=== PATIENT | female | born 1970 | race Caucasian/White ===

== ENCOUNTER 2018-08-13 14:50 | Emergency (ER) | payer OTHER, SELFPAY ==
[2018-08-13 15:08] VITALS: BP 108/73; PULSE 78; RESP 18; TEMP 36.7; O2SAT 99
--- NOTE | 2018-08-13 15:10 | ED.UPPEXIN ---
HPI - Extremity Injury (Upper) <Maxine Krishna PA-C - Last Filed: 08/13/18 21:17> General Chief Complaint: Trauma Stated Complaint: Fell off ladder, R arm pain Time Seen by Provider: 08/13/18 15:09 Source: patient Mode of arrival: ambulatory Limitations: no limitations History of Present Illness HPI narrative: this 47-year-old female that she was up on a 6 ft ladder getting something from the closet when she slipped. She states that she did not fall all the way down because she grabbed the shelf , then dropped down from she states that she fell onto her right gluteal area, which is sore. She thinks that she scraped her left oliveira on the ladder. Her worst pain is in the right forearm area. She states she does not think that she fell directly on it, and her thinks that she hit it on a wood cabinet on the way down, fell onto the garage floor. She denies hitting her head or LOC. She is not having pain in her neck. She denies weakness or paresthesia in extremities. She denies groin numbness, bowel or bladder problems, states she got right up and was able to walk Related Data Home Medications Medication Instructions Recorded Confirmed albuterol sulfate [ProAir HFA] 2 - 4 puff INHALATION Q4-6H PRN 08/13/18 08/13/18 sertraline 100 mg PO BEDTIME 08/13/18 08/13/18 Allergies Allergy/AdvReac Type Severity Reaction Status Date / Time ibuprofen Allergy Rash Verified 08/13/18 15:12 Review of Systems <Maxine Krishna PA-C - Last Filed: 08/13/18 21:17> Review of Systems All systems reviewed & are unremarkable except as noted in HPI and below Exam <Maxine Krishna PA-C - Last Filed: 08/13/18 21:17> Narrative Exam Narrative: GENERAL APPEARANCE: Patient sitting comfortably, in no distress. LUNGS: Clear to auscultation bilaterally. HEART: Rate and rhythm regular without murmur, normal S1 and S2, no S3 or S4. MUSCULOSKELETAL: No point tenderness over the thoracic or lumbar spine. She has mild tenderness over the sacrum and right SI/gluteal area. She has localized edema of the right mid to distal forearm with point tenderness overlying. mild tenderness over the distal lateral border of the wrist and snuffbox, no tenderness elsewhere over the wrist or hand. Full range of motion at the elbow, wrist, and right hand fingers without tenderness , senior manager creative services strength 5/5 NEUROVASCULAR: Right hand fingers are warm and pink with brisk cap refill, sensation grossly intact DERMATOLOGIC: There is a superficial abrasion on the left oliveira 6 mm in length oozing slightly. There are superficial abrasions on the right forearm with faint patches of ecchymoses. Initial Vital Signs Initial Vital Signs: Vital Signs Temperature 98.1 F 08/13/18 15:08 Pulse Rate 78 08/13/18 15:08 Respiratory Rate 18 08/13/18 15:08 Blood Pressure 108/73 08/13/18 15:08 Pulse Oximetry 99 08/13/18 15:08 <Rebecca Ontiveros DO - Last Filed: 08/16/18 08:07> Initial Vital Signs Initial Vital Signs: Vital Signs Temperature 98.1 F 08/13/18 15:08 Pulse Rate 78 08/13/18 15:08 Respiratory Rate 18 08/13/18 15:08 Blood Pressure 108/73 08/13/18 15:08 Pulse Oximetry 99 08/13/18 15:08 Course <Maxine Krishna PA-C - Last Filed: 08/13/18 21:17> Orders Ordered: Discontinued Medications Diphtheria/Tetanus/Acell Pertussis (Adacel) 0.5 ml IM .ONCE ONE Stop: 08/13/18 15:42 Ibuprofen (Advil) 800 mg PO NOW ONE Stop: 08/13/18 15:26 Last Admin: 08/13/18 15:30 Dose: 800 mg Vital Signs - 8 hr 08/13/18 15:08 08/13/18 16:36 Temperature 98.1 F Pulse Rate 78 73 Respiratory Rate 18 15 Blood Pressure 108/73 117/74 Pulse Oximetry 99 97 <DO Leticia Hernandez Last Filed: 08/16/18 08:07> Orders Ordered: Discontinued Medications Diphtheria/Tetanus/Acell Pertussis (Adacel) 0.5 ml IM .ONCE ONE Stop: 08/13/18 15:42 Ibuprofen (Advil) 800 mg PO NOW ONE Stop: 08/13/18 15:26 Last Admin: 08/13/18 15:30 Dose: 800 mg Vital Signs - 8 hr 08/13/18 15:08 08/13/18 16:36 Temperature 98.1 F Pulse Rate 78 73 Respiratory Rate 18 15 Blood Pressure 108/73 117/74 Pulse Oximetry 99 97 Discharge Plan Departure Patient Disposition: Home Clinical Impression: Contusion of multiple sites Discharge Date/Time: 08/13/18 16:38 Interventions: ED Discharge Assessment Last Done: 08/13/18 16:36 Instructions: DI for Contusion Activity Restrictions/Additional Instructions: Please return as we talked about if you have any new or worsening symptoms. Please protect your arm and rest the forearm and wrist area as you may have strained it when you fell. Please be sure to follow up with your PCP for recheck next week. Sometimes repeat x-rays are needed the if you are not getting better. Your tailbone area may be sore for some time but you can walk and exercise as tolerated (avoid pressure on the area as much as possible). You may wish to continue Ibuprofen 400-800mg every 8 hours for pain and swelling, at least for the next few days, and you can add Tylenol as needed Prescriptions: No Action albuterol sulfate [ProAir HFA] 90 mcg/actuation HFA aerosol inhaler 2 - 4 puff Inhalation Q4-6H PRN (Reason: wheezing or cough) RF: 0 sertraline 100 mg tablet 100 mg PO BEDTIME RF: 0 Referrals: Princess Kiran MD [Non-Staff] - <Rebecca Ontiveros DO - Last Filed: 08/16/18 08:07> Cosign ED Attending Chuyature Attestation: I was immediately available in the department for consultation. Documentation has been reviewed. I agree with assessment and plan.
--- NOTE | 2018-08-13 15:29 | DI.RAD.S_ITS ---
PROCEDURE: XR HAND RT MIN 3V INDICATIONS: lateral pain s/p fall TECHNIQUE: 3 views of the hand(s) acquired. COMPARISON: None. FINDINGS: Bones: No fractures or dislocations. Carpal bones are normally aligned. No suspicious bony lesions. Soft tissues: No suspicious soft tissue calcifications. IMPRESSION: No fracture. No osseous lesion. If symptoms and/or clinical suspicion for pathology persists, further assessment with repeat radiographs (7-10 days) or advanced imaging (e.g. CT, MRI or bone scan) may be helpful. Dictated by: Citlali Henriquez MD, PhD on 08/13/2018 at 15:47 Approved by: Citlali Henriquez MD, PhD on 08/13/2018 at 15:48
--- NOTE | 2018-08-13 15:29 | DI.RAD.S_ITS ---
PROCEDURE: XR FOREARM RT 2V INDICATIONS: proximal to mid pain, s/p fall TECHNIQUE: 2 views of the forearm were acquired. COMPARISON: None. FINDINGS: Bones: No fractures or dislocations. No suspicious bony lesions. Soft tissues: No suspicious soft tissue calcifications or masses. IMPRESSION: No fracture. No osseous lesion. If symptoms and/or clinical suspicion for pathology persists, further assessment with repeat radiographs (7-10 days) or advanced imaging (e.g. CT, MRI or bone scan) may be helpful. Dictated by: Citlali Henriquez MD, PhD on 08/13/2018 at 15:44 Approved by: Citlali Henriquez MD, PhD on 08/13/2018 at 15:47
[2018-08-13] MEDS: IBUPROFEN 400 MG TABLET 800 MG PO (15:30)
[2018-08-13 16:36] VITALS: BP 117/74; PULSE 73; RESP 15; O2SAT 97
== END 2018-08-13 16:38 | disposition home or self-care (01) ==
PROVIDERS: Emergency Provider Internal Medicine
DX: S80.812A Abrasion, left lower leg, initial encounter (principal); S50.811A Abrasion of right forearm, initial encounter; W11.XXXA Fall on and from ladder, initial encounter
CPT/HCPCS: 73090; 73130; 99282; 99283

== ENCOUNTER 2019-09-29 08:56 | Emergency (ER) | payer OTHER, SELFPAY ==
[2019-09-29 09:11] VITALS: BP 115/80; PULSE 89; RESP 19; TEMP 37; O2SAT 97; BMI 31.5
--- NOTE | 2019-09-29 09:11 | DI.RAD.S_ITS ---
PROCEDURE: XR CHEST 2V INDICATIONS: shortness of breath TECHNIQUE: 2 views of the chest were acquired. COMPARISON: None. FINDINGS: Surgical changes and devices: None. Lungs and pleura: Lungs are abnormal with asymmetric alveolar infiltration mild in severity at the medial left lung base behind the heart and moderate in severity over the right upper, middle and lower thirds of the lung parenchyma.. No pleural effusions or pneumothorax. Mediastinum: Mediastinal contours are normal. Heart size is normal. Bones and chest wall: No suspicious bony abnormalities. Soft tissues appear unremarkable. IMPRESSION: Right-sided pneumonia, minimal medial left lung base pneumonia, no pleural effusion or definite central mass lesion. Followup by plain film assessment is recommended after symptoms have resolved to ensure complete resolution. Dictated by: Felix Ortega M.D. on 09/29/2019 at 9:55 Approved by: Felix Ortega M.D. on 09/29/2019 at 9:56
--- NOTE | 2019-09-29 09:22 | ED_ITS ---
HPI - SOB/Dyspnea General Chief Complaint: Shortness of Breath/Dyspnea Stated Complaint: SURGERY ON FRIDAY,SHORTNESS OF BREATH Time Seen by Provider: 09/29/19 09:03 Source: patient Mode of arrival: Ambulatory Limitations: no limitations History of Present Illness HPI Narrative: Patient is a 48-year-old female who presents with increasing shortness of breath and cough. She had an outpatient procedure for removal of bladder sling 2 days ago. She says that she aspirated and now she has been coughing up more stuff. She said last night she coughed up a lot. She denies any fever is. She says she was getting more short of breath with exertion yesterday but is not short of breath now. She denies any chest pain or palpitations she has no abdominal pain she is having bowel movements denies any painful or frequent urination. MD Complaint: shortness of breath Onset (ago): day(s) Severity: mild Relieving factors: nothing Exacerbating factors: nothing Related Data Home Medications Medication Instructions Recorded Confirmed albuterol sulfate [ProAir HFA] 2 - 4 puff INHALATION Q4-6H PRN 08/13/18 08/13/18 sertraline 100 mg PO BEDTIME 08/13/18 08/13/18 Previous Rx's Medication Instructions Recorded levofloxacin [Levaquin] 750 mg PO DAILY #5 tab 09/29/19 Allergies Allergy/AdvReac Type Severity Reaction Status Date / Time ibuprofen Allergy Rash Verified 09/29/19 09:23 Review of Systems Review of Systems Narrative: GENERAL: Denies chills, fatigue, malaise, fever, sweats, travel HEENT: Denies sinus pain, ear pain, sore throat, difficulty swallowing, neck pain RESPIRATORY: See HPI CARDIOVASCULAR: Denies chest pain, palpitations, orthopnea, edema GASTROINTESTINAL: Denies nausea, vomiting, abdominal pain, diarrhea, constipation, melena. : Denies dysuria, frequency, incontinence, hematuria, urinary retention, flank pain. MUSCULOSKELETAL: Denies weakness, joint pain, or bony pain SKIN: No rash, no erythema, no pruritus NEUROLOGIC: Denies weakness, dizziness, headache, numbness, change in speech, confusion PSYCHIATRIC: No concerning psychosocial issues. 12 point review of systems is negative except for those stated above and HPI Patient History Medical History Menopausal syndrome (hot flashes) (Resolved) Surgical History Status post cholecystectomy (Resolved) Status post partial hysterectomy (Resolved) Social History Smoking Status: Never smoker Smoking Status: Never smoker alcohol intake frequency: other Substance Use Type: does not use Exam Initial Vital Signs Initial Vital Signs: Vital Signs Temperature 98.6 F 09/29/19 09:11 Pulse Rate 89 09/29/19 09:11 Respiratory Rate 19 09/29/19 09:11 Blood Pressure 115/80 09/29/19 09:11 Pulse Oximetry 97 09/29/19 09:11 GENERAL: Well-appearing, well-nourished and in no acute distress. HEENT: Head atraumatic,EOMI, pupils reactive CARDIOVASCULAR: Regular rate and rhythm without murmurs, rubs or gallops. RESPIRATORY: Breath sounds equal bilaterally, no wheezes rales or rhonchi. ABDOMEN: Soft, nontender. Normoactive bowel sounds all 4 quadrants. No guarding or rebound. EXTREMITIES: Normal range of motion, no clubbing or edema. Neurovascularly intact NEUROLOGICAL: Alert and oriented x4.Normal gait and speech. Cranial nerves II through XII grossly intact. SKIN: Warm, dry, no laceration, no petechiae, no rashes or lesions. Scores CURB-65 Confusion: No BUN >19mg/dL (>7mmol/L): No Respiratory rate greater or equal to 30: No SBP <90mmHg or DBP less or equal to 60mmHg: No Age 65 or Older: No CURB-65 Total: 0 Score 0-1 Outpatient care, Score 2 Inpt vs. Obs, Score 3 or over Inpt admit with ICU for score of 4-5 Course Orders Ordered: ED Orders 09/29/19 09:11 XR chest 2V Stat EKG-12 Lead Stat Measure peak expiratory flow ONCE RT Consult Eval and Treat Now 09/29/19 09:16 Urinalysis and Microscopic Stat 09/29/19 09:37 Complete Blood Count AUTO DIFF Stat Comprehensive Metabolic Panel Stat D Dimer Stat 09/29/19 09:57 Lactate (Lactic Acid) Stat 09/29/19 10:54 CT angio chest PE protocol Stat Discontinued Medications Ondansetron HCl (Zofran) 4 mg IV NOW ONE Stop: 09/29/19 09:47 Last Admin: 09/29/19 09:57 Dose: 4 mg Documented by: JONAH Vital Signs Vital signs: Vital Signs - 8 hr 09/29/19 09:11 09/29/19 10:36 09/29/19 11:52 Temperature 98.6 F Pulse Rate 89 94 H 92 H Respiratory Rate 19 12 16 Blood Pressure 115/80 109/77 Blood Pressure [Right Arm] 109/77 Pulse Oximetry 97 100 100 MDM - SOB/Dyspnea Lab Data Attestation: I reviewed the patient's lab results. Result diagrams: 09/29/19 09:37 09/29/19 09:37 Labs: Lab Results 09/29/19 09/29/19 09/29/19 Range/Units 09:16 09:37 09:37 WBC 10.6 (4.5-11.0) X10^3/uL RBC 3.94 L (4.0-5.2) X10^6/uL Hgb 11.9 L (12.0-16.0) g/dL Hct 34.3 L (36-46) % MCV 87.0 (80-100) fL MCH 30.2 (26-34) PG MCHC 34.7 (30-36) % RDW 12.9 (11.6-14.8) % Plt Count 243 (150-400) X10^3/uL Neut % (Auto) 69.5 (50-75) % Lymph % (Auto) 16.7 L (25-40) % [place] % (Auto) 5.8 (3-14) % Eos % (Auto) 7.2 H (2-4) % Baso % (Auto) 0.8 (0-2) % Neut # (Auto) 7400 H (7009-7137) /uL Lymph # (Auto) 1800 (4428-1118) /uL [place] # (Auto) 600 (0-900) /uL Eos # (Auto) 800 H (0-450) /uL Baso # (Auto) 100 (0-100) /uL D-Dimer (<230) ng/mL Sodium 137 (137-145) mmol/L Potassium 3.8 (3.4-5.1) mmol/L Chloride 105 (98-107) mmol/L Carbon Dioxide 25 (22-32) mmol/L BUN 7 (7-17) mg/dL Creatinine 0.50 L (0.52-1.04) mg/dL Estimated GFR > 60.0 (>60) mL/min BUN/Creatinine Ratio 14.0 (6-22) Glucose 88 (70-100) mg/dL Lactate (0.7-2.1) mmol/L Calcium 9.1 (8.4-10.2) mg/dL Total Bilirubin 0.5 (0.2-1.3) mg/dL AST 23 (14-36) IU/L ALT 15 (<35) IU/L Alkaline Phosphatase 56 (38-126) U/L Total Protein 7.0 (6.3-8.2) g/dL Albumin 4.0 (3.5-5.0) g/dL Globulin 3.0 (1.7-4.1) g/dL Albumin/Globulin Ratio 1.3 (1.0-2.8) Urine Color Yellow Urine Appearance Clear Urine pH 7.5 (4.5-8.0) Ur Specific [place] 1.010 (1.000-1.035) Urine Protein Negative (Negative) Urine Glucose (UA) Negative (Negative) g/dL Urine Ketones Negative (NEGATIVE) Urine Occult Blood 1+ H (Negative) Urine Nitrate Negative (Negative) Urine Bilirubin Negative (NEGATIVE) Urine Urobilinogen 0.2 (0.2) E.U./dL Ur Leukocyte Esterase Negative (NEGATIVE) Urine RBC 5-10/hpf H (0-5/HPF) Urine WBC None seen (0-5/HPF) Urine Bacteria None seen (None) Ur Culture Indicated? Cult not indicated 09/29/19 09/29/19 Range/Units 09:37 09:57 WBC (4.5-11.0) X10^3/uL RBC (4.0-5.2) X10^6/uL Hgb (12.0-16.0) g/dL Hct (36-46) % MCV (80-100) fL MCH (26-34) PG MCHC (30-36) % RDW (11.6-14.8) % Plt Count (150-400) X10^3/uL Neut % (Auto) (50-75) % Lymph % (Auto) (25-40) % [place] % (Auto) (3-14) % Eos % (Auto) (2-4) % Baso % (Auto) (0-2) % Neut # (Auto) (1932-0892) /uL Lymph # (Auto) (5084-3178) /uL [place] # (Auto) (0-900) /uL Eos # (Auto) (0-450) /uL Baso # (Auto) (0-100) /uL D-Dimer 480 H (<230) ng/mL Sodium (137-145) mmol/L Potassium (3.4-5.1) mmol/L Chloride (98-107) mmol/L Carbon Dioxide (22-32) mmol/L BUN (7-17) mg/dL Creatinine (0.52-1.04) mg/dL Estimated GFR (>60) mL/min BUN/Creatinine Ratio (6-22) Glucose (70-100) mg/dL Lactate 0.8 (0.7-2.1) mmol/L Calcium (8.4-10.2) mg/dL Total Bilirubin (0.2-1.3) mg/dL AST (14-36) IU/L ALT (<35) IU/L Alkaline Phosphatase (38-126) U/L Total Protein (6.3-8.2) g/dL Albumin (3.5-5.0) g/dL Globulin (1.7-4.1) g/dL Albumin/Globulin Ratio (1.0-2.8) Urine Color Urine Appearance Urine pH (4.5-8.0) Ur Specific [place] (1.000-1.035) Urine Protein (Negative) Urine Glucose (UA) (Negative) g/dL Urine Ketones (NEGATIVE) Urine Occult Blood (Negative) Urine Nitrate (Negative) Urine Bilirubin (NEGATIVE) Urine Urobilinogen (0.2) E.U./dL Ur Leukocyte Esterase (NEGATIVE) Urine RBC (0-5/HPF) Urine WBC (0-5/HPF) Urine Bacteria (None) Ur Culture Indicated? Urine Dip Bedside Urine Glucose Negative Bedside Urine Bilirubin - Negative Bedside Urine Ketone - Negative Urine Specific [place] 1.010 Bedside Urine Occult Blood +/- Bedside Urine pH 8.0 Bedside Urine Protein - Negative Bedside Urine Urobilinogen - Negative Bedside Urine Nitrite - Negative Bedside Urine Leukocytes - Negative Esterase Imaging Data Chest x-ray: Radiologist's Impression: PROCEDURE: XR CHEST 2V INDICATIONS: shortness of breath TECHNIQUE: 2 views of the chest were acquired. COMPARISON: None. FINDINGS: Surgical changes and devices: None. Lungs and pleura: Lungs are abnormal with asymmetric alveolar infiltration mild in severity at the medial left lung base behind the heart and moderate in severity over the right upper, middle and lower thirds of the lung parenchyma.. No pleural effusions or pneumothorax. Mediastinum: Mediastinal contours are normal. Heart size is normal. Bones and chest wall: No suspicious bony abnormalities. Soft tissues appear unremarkable. IMPRESSION: Right-sided pneumonia, minimal medial left lung base pneumonia, no pleural effusion or definite central mass lesion. Followup by plain film assessment is recommended after symptoms have resolved to ensure complete resolution. Dictated by: Felix Ortega M.D. on 09/29/2019 at 9:55 CT scan - chest: Radiologist's Impression: PROCEDURE: CT ANGIO CHEST PE PROTOCOL INDICATIONS: +dimer recent surgery and sob TECHNIQUE: After the administration of intravenous contrast, 2 mm thick sections acquired from the pulmonary apices to the posterior costophrenic angles. 3-dimensional maximum intensity projection (MIP) coronal and sagittal reformats were then acquired through the thorax. For radiation dose reduction, the following was used: automated exposure control, adjustment of mA and/or kV according to patient size. COMPARISON: [facility], , XR CHEST 2V, 09/29/2019, 9:33. FINDINGS: Image quality: Excellent. Pulmonary arteries: Pulmonary arteries are normal in size, and demonstrate no intraluminal filling defects to suggest central pulmonary embolism. Lungs and pleura: Lungs are abnormal as was seen on chest plain film imaging earlier today with right greater than left pneumonia. No pleural effusions or pneumothorax. Central and peripheral airways are patent. Mediastinum: Heart size is normal, without pericardial effusion. No mediastinal or hilar adenopathy. Thoracic aorta is normal in caliber and enhancement. Esophagus is normal in caliber, without hiatal hernia. Bones and chest wall: No suspicious bony lesions. Ribs and thoracic spine appear intact throughout. Thyroid gland appears normal where well seen.. No axillary or supraclavicular adenopathy. Abdomen: Visualized upper abdominal solid organs appear normal in the early arterial phase of enhancement. IMPRESSION: Right greater than left pneumonia without appreciable change considering differences in technique from two-view chest plain film imaging earlier today. No pulmonary embolus found. Dictated by: Felix Ortega M.D. on 09/29/2019 at 11:23 MDM Narrative Medical decision making narrative: Patient does have mildly elevated D-dimer but does have pneumonia on x-ray. CT is negative for PE and confirms right-sided pneumonia. Patient has history of vomiting an aspiration after outpatient surgery. This is consistent with aspiration. Overall she does not appear septic she appears well she has no fever or leukocytosis. At this time appropriate for outpatient management in oral antibiotics. She is prescribed Levaquin is to cover for atypicals. Discharge Plan Departure Patient Disposition: Home Clinical Impression: Pneumonia Qualifiers: Pneumonia type: aspiration pneumonia Aspiration pneumonia type: due to vomit Laterality: right Lung location: unspecified part of lung Qualified Code(s): J69.0 - Pneumonitis due to inhalation of food and vomit Discharge Date/Time: 09/29/19 11:54 Instructions: Aspiration Pneumonia Activity Restrictions/Additional Instructions: *You have been diagnosed with aspiration pneumonia *What to do: Increase fluid intake, rest of blood work overall reassuring we do have pneumonia both on CT scan and x-ray *Continue to take medications as directed Levaquin 750 mg once a day for 5 days *Follow up with your primary care provider in 2-3 days *Return to ER if you should have increased shortness of breath, fever not controlled decreased intake, increased confusion or any new, worsening or concerning symptoms Prescriptions: New levofloxacin [Levaquin] 750 mg tablet 750 mg PO DAILY Qty: 5 RF: 0 No Action albuterol sulfate [ProAir HFA] 90 mcg/actuation HFA aerosol inhaler 2 - 4 puff Inhalation Q4-6H PRN (Reason: wheezing or cough) RF: 0 sertraline 100 mg tablet 100 mg PO BEDTIME RF: 0
[2019-09-29 09:45] LABS: Add Manual Diff / Slide Review NO; Basophils Absolute Auto 100 /uL (0-100); Basophils Percent Auto 0.8 % (0-2); Eosinophils Absolute Auto 800 /uL (0-450); Eosinophils Percent Auto 7.2 % (2-4); Hematocrit 34.3 % (36-46); Hemoglobin 11.9 g/dL (12.0-16.0); Lymphocytes Absolute Auto 1800 /uL (1100-4500); Lymphocytes Percent Auto 16.7 % (25-40); Mean Corpuscular HGB Conc 34.7 % (30-36); Mean Corpuscular Hemoglobin 30.2 PG (26-34); Monocytes Absolute Auto 600 /uL (0-900); Monocytes Percent Auto 5.8 % (3-14); Neutrophils Absolute Auto 7400 /uL (1500-7000); Neutrophils Percent Auto 69.5 % (50-75); Platelet Count 243 X10^3/uL (150-400); Red Blood Cell Count 3.94 X10^6/uL (4.0-5.2); Red Cell Distribution Width 12.9 % (11.6-14.8); White Blood Cell Count 10.6 X10^3/uL (4.5-11.0)
[2019-09-29 09:55] LABS: Alanine Aminotransferase 15 IU/L (<35); Alkaline Phosphatase 56 U/L (38-126); Aspartate Aminotransferase 23 IU/L (14-36); Bilirubin Total 0.5 mg/dL (0.2-1.3); Blood Urea Nitrogen 7 mg/dL (7-17); Calcium 9.1 mg/dL (8.4-10.2); Carbon Dioxide 25 mmol/L (22-32); Chloride 105 mmol/L (98-107); Estimated Glomerular Filt Rate > 60.0 mL/min (>60); Glucose 88 mg/dL (70-100); Potassium 3.8 mmol/L (3.4-5.1); Sodium 137 mmol/L (137-145)
[2019-09-29 09:56] LABS: Albumin Globulin Ratio 1.3 (1.0-2.8); HEMOLYSIS < 15 (0-50)
[2019-09-29] MEDS: ONDANSETRON 4 MG/2 ML INJ IV (09:57)
[2019-09-29 10:00] LABS: Appearance Urine UA CLEAR; Bacteria Urine None Seen; Bilirubin Urine UA NEGATIVE (NEGATIVE); Color Urine UA YELLOW; Glucose Urine UA NEGATIVE (Negative); Ketones Urine UA NEGATIVE (NEGATIVE); Leukocyte Esterase Urine UA NEGATIVE (NEGATIVE); Nitrite Urine UA NEGATIVE (Negative); Occult Blood Urine UA 1+ (Negative); Protein Urine UA NEGATIVE (Negative); Urobilinogen Urine UA 0.2 E.U./dL (0.2); WBC Urine None Seen (0-5/HPF)
[2019-09-29 10:03] LABS: pH Urine UA 7.5 (4.5-8.0)
[2019-09-29 10:13] LABS: Culture Indicated Urine Cult Not Indicated; RBC Urine 5-10/HPF (0-5/HPF)
[2019-09-29 10:18] LABS: Lactate (Lactic Acid) 0.8 mmol/L (0.7-2.1)
[2019-09-29 10:30] LABS: D Dimer 480 ng/mL (<230)
[2019-09-29 10:36] VITALS: BP 109/77; PULSE 94; RESP 12; O2SAT 100
--- NOTE | 2019-09-29 10:54 | DI.CT.S_ITS ---
PROCEDURE: CT ANGIO CHEST PE PROTOCOL INDICATIONS: +dimer recent surgery and sob TECHNIQUE: After the administration of intravenous contrast, 2 mm thick sections acquired from the pulmonary apices to the posterior costophrenic angles. 3-dimensional maximum intensity projection (MIP) coronal and sagittal reformats were then acquired through the thorax. For radiation dose reduction, the following was used: automated exposure control, adjustment of mA and/or kV according to patient size. COMPARISON: [facility], CR, XR CHEST 2V, 09/29/2019, 9:33. FINDINGS: Image quality: Excellent. Pulmonary arteries: Pulmonary arteries are normal in size, and demonstrate no intraluminal filling defects to suggest central pulmonary embolism. Lungs and pleura: Lungs are abnormal as was seen on chest plain film imaging earlier today with right greater than left pneumonia. No pleural effusions or pneumothorax. Central and peripheral airways are patent. Mediastinum: Heart size is normal, without pericardial effusion. No mediastinal or hilar adenopathy. Thoracic aorta is normal in caliber and enhancement. Esophagus is normal in caliber, without hiatal hernia. Bones and chest wall: No suspicious bony lesions. Ribs and thoracic spine appear intact throughout. Thyroid gland appears normal where well seen.. No axillary or supraclavicular adenopathy. Abdomen: Visualized upper abdominal solid organs appear normal in the early arterial phase of enhancement. IMPRESSION: Right greater than left pneumonia without appreciable change considering differences in technique from two-view chest plain film imaging earlier today. No pulmonary embolus found. Dictated by: Felix Ortega M.D. on 09/29/2019 at 11:23 Approved by: Felix Ortega M.D. on 09/29/2019 at 11:30
[2019-09-29 11:52] VITALS: BP 109/77; PULSE 92; RESP 16; O2SAT 100
== END 2019-09-29 11:54 | disposition home or self-care (01) ==
PROVIDERS: Emergency Provider Emergency Medicine
DX: J69.0 Pneumonitis due to inhalation of food and vomit (principal); R06.02 Shortness of breath
CPT/HCPCS: 36415; 71046; 71275; 80053; 81001; 81003; 83605; 85025; 85379; 93005; 93010; 96374; 99284; 99285; J2405; Q9967

== ENCOUNTER 2019-11-07 13:13 | Emergency (ER) | payer OTHER, SELFPAY ==
--- NOTE | 2019-11-07 13:18 | DI.RAD.S_ITS ---
PROCEDURE: XR CHEST 1V INDICATIONS: chest pain TECHNIQUE: One view of the chest was acquired. COMPARISON: [facility], CT, CT ANGIO CHEST PE PROTOCOL, 09/29/2019, 10:38. [facility], CR, XR CHEST 2V, 09/29/2019, 9:33. FINDINGS: Surgical changes and devices: None. Lungs and pleura: There is fine loss in the right hemithorax with an associated wedge-shaped opacity in the right lung base obscuring the right diaphragmatic contours. The right heart contours are grossly visible. Findings are consistent with right lower lobe collapse. Left lung is clear. No pleural effusions or pneumothorax. Mediastinum: There is a right-sided shift of the mediastinum. Heart size is normal. Bones and chest wall: No suspicious bony lesions. Overlying soft tissues appear unremarkable. IMPRESSION: 1. Right lower lobe collapse with associated right-sided volume loss. The findings may reflect a possible mucous plug. Associated consolidation of the right lower lobe is also not excluded. Dictated by: Jose Reagan M.D. on 11/07/2019 at 13:14 Approved by: Jose Reagan M.D. on 11/07/2019 at 13:19
[2019-11-07 13:30] VITALS: BP 143/77; PULSE 74; RESP 18; TEMP 36.7; O2SAT 98; BMI 30.1
--- NOTE | 2019-11-07 13:45 | ED.CHESTPAIN ---
HPI - Chest Pain General Chief Complaint: Chest Pain Stated Complaint: had pneumonia, chest pain x 4 days Time Seen by Provider: 11/07/19 13:18 Source: patient Mode of arrival: Family Vehicle Limitations: no limitations History of Present Illness HPI narrative: 48-year-old female who states that in September of this year was diagnosed with pneumonia. States since then she has not felt back to normal again. States that for the past 4 days she has had left-sided chest pain. It has been a constant pain and has not been symptom-free however has had times when it has been worse than others. Does not seem to be associated with palpation or movement or breathing. She states she has had some pain in her right jaw and also tingling in her left hand which she is unsure is associated with the pain or not. No prior heart issues. Related Data Home Medications Medication Instructions Recorded Confirmed albuterol sulfate [ProAir HFA] 2 - 4 puff INHALATION Q4-6H PRN 08/13/18 08/13/18 sertraline 100 mg PO BEDTIME 08/13/18 08/13/18 Previous Rx's Medication Instructions Recorded levofloxacin [Levaquin] 750 mg PO DAILY #5 tab 09/29/19 benzonatate [Tessalon Perles] 100 mg PO TID PRN #20 cap 11/07/19 Allergies Allergy/AdvReac Type Severity Reaction Status Date / Time ibuprofen Allergy Rash Verified 09/29/19 09:23 Review of Systems Constitutional Constitutional: Denies fever(s) Cardiovascular Cardiovascular: Reports chest pain, Denies rapid heart rate, Denies palpitations, Denies dyspnea and Denies dyspnea on exertion Respiratory Respiratory: Denies dyspnea and Denies dyspnea on exertion Gastrointestinal Gastrointestinal: Denies abdominal pain, Denies belching, Denies nausea and Denies vomiting Musculoskeletal Musculoskeletal: Denies myalgias and Denies arthralgias Integumentary/Breasts Skin/Breast: Denies rash Neurologic Neurologic: Denies behavioral changes Psychiatric Psychiatric: Denies behavioral changes Endocrine Endocrine: Denies palpitations Hematologic/Lymphatic Hematologic/Lymphatic: Denies easy bleeding and Denies easy bruising Patient History Medical History Menopausal syndrome (hot flashes) (Resolved) Social History Smoking Status: Never smoker Smoking Status: Never smoker alcohol intake frequency: other Substance Use Type: does not use Exam Initial Vital Signs Initial Vital Signs: Vital Signs Temperature 98.0 F 11/07/19 13:30 Pulse Rate 74 11/07/19 13:30 Respiratory Rate 18 11/07/19 13:30 Blood Pressure 143/77 H 11/07/19 13:30 Pulse Oximetry 98 11/07/19 13:30 Const General: cooperative, comfortable and well developed Limitations: mental status not altered HENMT Head: normal to inspection and normocephalic Resp Effort & Inspection: normal respiratory effort Auscultation: clear to auscultation bilaterally Cardio Rate: regular rate Rhythm: regular rhythm GI Inspection: non-distended Palpation: soft Skin Lesions: no lesions Rashes: no rashes Neuro General: alert, awake and oriented x3 Cognition: normal cognition Speech: speech normal Extrem General: normal to inspection and capillary refill normal Psych Appearance: grossly normal and well kempt Course Orders Ordered: ED Orders 11/07/19 13:18 XR chest 1V Stat EKG-12 Lead Stat 11/07/19 13:45 Complete Blood Count AUTO DIFF Stat Comprehensive Metabolic Panel Stat Lipase Stat Partial Thromboplastin Time Stat Prothrombin Time INR Stat Troponin & CK Cardiac Panel Stat 11/07/19 14:26 CT angio chest PE protocol Stat Vital Signs Vital signs: Vital Signs - 8 hr 11/07/19 13:30 11/07/19 15:19 Temperature 98.0 F Pulse Rate 74 91 H Respiratory Rate 18 20 Blood Pressure 143/77 H Blood Pressure [Left Arm] 164/86 H Pulse Oximetry 98 100 MDM - Chest Pain Lab Data Attestation: I reviewed the patient's lab results. Result diagrams: 11/07/19 13:45 11/07/19 13:45 Labs: Lab Results 11/07/19 11/07/19 11/07/19 Range/Units 13:45 13:45 13:45 WBC 8.2 (4.5-11.0) X10^3/uL RBC 4.27 (4.0-5.2) X10^6/uL Hgb 12.7 (12.0-16.0) g/dL Hct 37.3 (36-46) % MCV 87.3 (80-100) fL MCH 29.7 (26-34) PG MCHC 34.0 (30-36) % RDW 12.6 (11.6-14.8) % Plt Count 263 (150-400) X10^3/uL Neut % (Auto) 61.6 (50-75) % Lymph % (Auto) 27.0 (25-40) % [place] % (Auto) 6.4 (3-14) % Eos % (Auto) 4.4 H (2-4) % Baso % (Auto) 0.6 (0-2) % Neut # (Auto) 5000 (0508-1980) /uL Lymph # (Auto) 2200 (1749-9340) /uL [place] # (Auto) 500 (0-900) /uL Eos # (Auto) 400 (0-450) /uL Baso # (Auto) 0 (0-100) /uL PT 12.2 (10.1-12.7) SECONDS INR 1.1 (0.9-1.3) APTT 32 (26.4-36.2) SECONDS Sodium 139 (137-145) mmol/L Potassium 3.9 (3.4-5.1) mmol/L Chloride 106 (98-107) mmol/L Carbon Dioxide 24 (22-32) mmol/L BUN 14 (7-17) mg/dL Creatinine 0.50 L (0.52-1.04) mg/dL Estimated GFR > 60.0 (>60) mL/min BUN/Creatinine Ratio 28.0 H (6-22) Glucose 93 (70-100) mg/dL Calcium 9.5 (8.4-10.2) mg/dL Total Bilirubin 0.4 (0.2-1.3) mg/dL AST 24 (14-36) IU/L ALT 17 (<35) IU/L Alkaline Phosphatase 51 (38-126) U/L Total Creatine Kinase 96 (30-135) U/L CK-MB (CK-2) TNP CK-MB (CK-2) Rel Index TNP Troponin I < 0.012 (0.01-0.034) ng/mL Total Protein 7.3 (6.3-8.2) g/dL Albumin 4.3 (3.5-5.0) g/dL Globulin 3.0 (1.7-4.1) g/dL Albumin/Globulin Ratio 1.4 (1.0-2.8) Lipase 98 (23-300) U/L Imaging Data Chest x-ray: Radiologist's Impression: [address] [address] XRay Report Signed Patient: Nayla Ann RMR#: [id number] : 1970Acct:[id number] Age/Sex: 48 / FDate of Service: 11/07/19 Loc: ED Accession Number: [id number] Procedure: XR chest 1V Ordering Provider: Aurelio Marshall D.O. PROCEDURE: XR CHEST 1V INDICATIONS: chest pain TECHNIQUE: One view of the chest was acquired. COMPARISON: [facility], CT, CT ANGIO CHEST PE PROTOCOL, 09/29/2019, 10:38. [facility], CR, XR CHEST 2V, 09/29/2019, 9:33. FINDINGS: Surgical changes and devices: None. Lungs and pleura: There is fine loss in the right hemithorax with an associated wedge-shaped opacity in the right lung base obscuring the right diaphragmatic contours. The right heart contours are grossly visible. Findings are consistent with right lower lobe collapse. Left lung is clear. No pleural effusions or pneumothorax. Mediastinum: There is a right-sided shift of the mediastinum. Heart size is normal. Bones and chest wall: No suspicious bony lesions. Overlying soft tissues appear unremarkable. IMPRESSION: 1. Right lower lobe collapse with associated right-sided volume loss. The findings may reflect a possible mucous plug. Associated consolidation of the right lower lobe is also not excluded. Dictated by: Jose Reagan M.D. on 11/07/2019 at 13:14 Approved by: Jose Reagan M.D. on 11/07/2019 at 13:19 CT scan - chest: Radiologist's Impression: [address] [address] [address] Scan Report Signed Patient: Nayla Ann RMR#: [id number] : 1970Acct:[id number] Age/Sex: 48 / FDate of Service: 11/07/19 Loc: ED Accession Number: [id number] Procedure: CT angio chest PE protocol Ordering Provider: Aurelio Marshall D.O. PROCEDURE: CT ANGIO CHEST PE PROTOCOL INDICATIONS: Potential right-sided lung collapse on x-ray TECHNIQUE: After the administration of intravenous contrast, 2 mm thick sections acquired from the pulmonary apices to the posterior costophrenic angles. 3-dimensional maximum intensity projection (MIP) coronal and sagittal reformats were then acquired through the thorax. For radiation dose reduction, the following was used: automated exposure control, adjustment of mA and/or kV according to patient size. COMPARISON: [facility], CR, XR CHEST 1V, 11/07/2019, 13:42. [facility], CT, CT ANGIO CHEST PE PROTOCOL, 09/29/2019, 10:38. FINDINGS: Image quality: Excellent. Pulmonary arteries: Pulmonary arteries are normal in size, and demonstrate no intraluminal filling defects to suggest central pulmonary embolism. Lungs and pleura: There is interval reexpansion of the right lower lobe. There are mild indistinct areas of atelectasis within the right lower lobe. Mild dependent atelectasis also demonstrated in the left lower lobe. No pleural effusions or pneumothorax. The trachea and central airways are patent. No discrete endobronchial mass lesion identified. Mediastinum: Heart size is normal, without pericardial effusion. No mediastinal or hilar adenopathy. Thoracic aorta is normal in caliber and enhancement. Esophagus is normal in caliber, without hiatal hernia. Bones and chest wall: No suspicious bony lesions. Ribs and thoracic spine appear intact throughout. Thyroid gland demonstrates no discrete nodules. No axillary or supraclavicular adenopathy. Abdomen: Visualized upper abdomen demonstrates an indistinct hypervascular focus in the right hepatic lobe within segment 6 which was not included on the prior study. IMPRESSION: 1. No evidence of pulmonary embolism. 2. Interval reexpansion of the right lower lobe compared to recent x-ray with minimal residual atelectasis in the lung bases. No endobronchial mass lesions identified. Dictated by: Jose Reagan M.D. on 11/07/2019 at 14:04 Approved by: Jose Reagan M.D. on 11/07/2019 at 14:09 ECG Data Attestation: I personally reviewed and interpreted this ECG as follows: Prior ECG tracings: not available for review Interpretation: Sinus rhythm Ventricular rate is 70 Normal axis Normal QRS Normal QTC No ST T wave changes MDM Narrative Medical decision making narrative: Patient not in respiratory distress. EKG is nonischemic. Has had 4 days of consistent pain with a negative troponin. Low risk heart score. Low suspicion for ACS. Patient's initial chest x-ray does show some concern for pathology in the right lung. Patient was not hypoxic, not tachypneic, has been coughing. CT scan shows no pulmonary embolism and shows a normal right lung. Unsure if the issue had resolved in between the chest x-ray in the CT scan or if it was a over read from the x-ray. Discussed this with the patient. Will have her follow up with her primary doctor to discuss further provocative testing. She was given return precautions. She expressed understanding and agreement. Discharge Plan Departure Patient Disposition: Home Clinical Impression: Atypical chest pain Instructions: DI for Atypical Chest Pain Activity Restrictions/Additional Instructions: Continue all of your medications as directed. I do recommend you talk with her primary provider about follow-up to include a potential stress test. Return to the emergency department for any new or worsening symptoms Prescriptions: New benzonatate [Tessalon Perles] 100 mg capsule 100 mg PO TID PRN (Reason: cough) Qty: 20 RF: 0 No Action albuterol sulfate [ProAir HFA] 90 mcg/actuation HFA aerosol inhaler 2 - 4 puff Inhalation Q4-6H PRN (Reason: wheezing or cough) RF: 0 sertraline 100 mg tablet 100 mg PO BEDTIME RF: 0 levofloxacin [Levaquin] 750 mg tablet 750 mg PO DAILY Qty: 5 RF: 0
--- NOTE | 2019-11-07 14:26 | DI.CT.S_ITS ---
PROCEDURE: CT ANGIO CHEST PE PROTOCOL INDICATIONS: Potential right-sided lung collapse on x-ray TECHNIQUE: After the administration of intravenous contrast, 2 mm thick sections acquired from the pulmonary apices to the posterior costophrenic angles. 3-dimensional maximum intensity projection (MIP) coronal and sagittal reformats were then acquired through the thorax. For radiation dose reduction, the following was used: automated exposure control, adjustment of mA and/or kV according to patient size. COMPARISON: [facility], CR, XR CHEST 1V, 11/07/2019, 13:42. [facility], CT, CT ANGIO CHEST PE PROTOCOL, 09/29/2019, 10:38. FINDINGS: Image quality: Excellent. Pulmonary arteries: Pulmonary arteries are normal in size, and demonstrate no intraluminal filling defects to suggest central pulmonary embolism. Lungs and pleura: There is interval reexpansion of the right lower lobe. There are mild indistinct areas of atelectasis within the right lower lobe. Mild dependent atelectasis also demonstrated in the left lower lobe. No pleural effusions or pneumothorax. The trachea and central airways are patent. No discrete endobronchial mass lesion identified. Mediastinum: Heart size is normal, without pericardial effusion. No mediastinal or hilar adenopathy. Thoracic aorta is normal in caliber and enhancement. Esophagus is normal in caliber, without hiatal hernia. Bones and chest wall: No suspicious bony lesions. Ribs and thoracic spine appear intact throughout. Thyroid gland demonstrates no discrete nodules. No axillary or supraclavicular adenopathy. Abdomen: Visualized upper abdomen demonstrates an indistinct hypervascular focus in the right hepatic lobe within segment 6 which was not included on the prior study. IMPRESSION: 1. No evidence of pulmonary embolism. 2. Interval reexpansion of the right lower lobe compared to recent x-ray with minimal residual atelectasis in the lung bases. No endobronchial mass lesions identified. Dictated by: Jose Reagan M.D. on 11/07/2019 at 14:04 Approved by: Jose Reagan M.D. on 11/07/2019 at 14:09
[2019-11-07 14:41] LABS: Hematocrit 37.3 % (36-46); Hemoglobin 12.7 g/dL (12.0-16.0); Red Blood Cell Count 4.27 X10^6/uL (4.0-5.2); White Blood Cell Count 8.2 X10^3/uL (4.5-11.0)
[2019-11-07 14:42] LABS: Add Manual Diff / Slide Review NO; Basophils Absolute Auto 0 /uL (0-100); Basophils Percent Auto 0.6 % (0-2); Eosinophils Absolute Auto 400 /uL (0-450); Eosinophils Percent Auto 4.4 % (2-4); INR 1.1 (0.9-1.3); Lymphocytes Absolute Auto 2200 /uL (1100-4500); Mean Corpuscular Hemoglobin 29.7 PG (26-34); Mean Corpuscular Volume 87.3 fL (80-100); Monocytes Absolute Auto 500 /uL (0-900); Monocytes Percent Auto 6.4 % (3-14); Neutrophils Absolute Auto 5000 /uL (1500-7000); Neutrophils Percent Auto 61.6 % (50-75); PTT Partial Thromboplastin Tim 32 SECONDS (26.4-36.2); Platelet Count 263 X10^3/uL (150-400); Prothrombin Time 12.2 SECONDS (10.1-12.7); Red Cell Distribution Width 12.6 % (11.6-14.8)
[2019-11-07 14:43] LABS: Alanine Aminotransferase 17 IU/L (<35); Albumin 4.3 g/dL (3.5-5.0); Albumin Globulin Ratio 1.4 (1.0-2.8); Alkaline Phosphatase 51 U/L (38-126); Aspartate Aminotransferase 24 IU/L (14-36); Bilirubin Total 0.4 mg/dL (0.2-1.3); Blood Urea Nitrogen 14 mg/dL (7-17); Calcium 9.5 mg/dL (8.4-10.2); Carbon Dioxide 24 mmol/L (22-32); Chloride 106 mmol/L (98-107); Creatine Kinase 96 U/L (30-135); Estimated Glomerular Filt Rate > 60.0 mL/min (>60); Glucose 93 mg/dL (70-100); Potassium 3.9 mmol/L (3.4-5.1); Sodium 139 mmol/L (137-145); Total Protein 7.3 g/dL (6.3-8.2); Troponin I < 0.012 ng/mL (0.01-0.034)
[2019-11-07 14:44] LABS: HEMOLYSIS < 15 (0-50); Lipase 98 U/L (23-300)
[2019-11-07 15:19] VITALS: BP 164/86; PULSE 91; RESP 20; O2SAT 100
[2019-11-07 15:52] VITALS: BP 164/86; PULSE 72; RESP 16; O2SAT 100
== END 2019-11-07 15:53 | disposition home or self-care (01) ==
PROVIDERS: Emergency Provider Emergency Medicine
DX: R07.89 Other chest pain (principal)
CPT/HCPCS: 36415; 71045; 71275; 80053; 82550; 83690; 84484; 85025; 85610; 85730; 93005; 99284; Q9967

== ENCOUNTER → 2020-06-12 14:28 | Outpatient (CLI) | payer OTHER, SELFPAY ==
[2020-06-13 07:42] LABS: COVID19 Sendout Not Detected (Not Detect)
== END ==
PROVIDERS: Visit Provider Physician Assistant
DX: Z11.59 Encounter for screening for other viral diseases (principal)
CPT/HCPCS: 87635

== ENCOUNTER 2020-06-15 13:23 | Day surgery (SDC) | payer OTHER, SELFPAY ==
[2020-06-15] VITALS (7 sets, daily range): BP systolic 114–139; BP diastolic 78–97; PULSE 80–108; RESP 10–16; TEMP 36.4–36.9; O2SAT 95–97; BMI 29.2
[2020-06-15] MEDS: LACTATED RINGERS 1,000 ML 200 ML IV (13:48)
--- NOTE | 2020-06-15 13:59 | P.HP_ITS ---
History of Present Illness History of Present Illness Date Patient Seen: 06/15/20 Time Patient Seen: 13:59 Chief complaint: SDC Narrative: The patient presents for colorectal sreening. They have never had any previous examination for such. No personal or family history of colon cancer. On further history denies any recent gastrointestinal symptoms. No nausea, vomiting, abdominal pain, loss of appetite, unexplained weight loss, change in bowel habits, diarrhea, constipation, melena, hematochezia, or bright red blood per rectum. Patient History Medical History Menopausal syndrome (hot flashes) (Resolved) Surgical History Status post cholecystectomy (Resolved) Status post partial hysterectomy (Resolved) Family & Social History Social History: household members spouse Tobacco & Substance use: Smoking Status Never smoker alcohol intake never alcohol intake frequency other Substance Use Type does not use Meds Home Medications and Allergies Home Medications Medication Instructions Recorded Confirmed Type albuterol sulfate [ProAir HFA] 2 - 4 puff INHALATION Q4-6H PRN 08/13/18 08/13/18 History sertraline 100 mg PO BEDTIME 08/13/18 08/13/18 History levofloxacin [Levaquin] 750 mg PO DAILY #5 tab 09/29/19 Rx benzonatate [Tessalon Perles] 100 mg PO TID PRN #20 cap 11/07/19 Rx Allergies Allergy/AdvReac Type Severity Reaction Status Date / Time ibuprofen Allergy Rash Verified 06/12/20 14:43 Review of Systems Review of Systems Narrative: A 10 point review of systems is negative except as noted in the HPI Exam Vital Signs (past 8 hours): - 06/15/20 13:44 Temperature 98.4 F Pulse Rate 80 Respiratory Rate 16 Blood Pressure 130/78 Pulse Oximetry 96 Oxygen Delivery Method Room Air Narrative Exam Narrative: General-no acute distress, well nourished adult woman HEENT-moist mucous membranes, no scleral icterus Neck-supple, no lymphadenopathy Chest- non labored respirations, clear to auscultation bilaterally Cardiac-regular rate no peripheral edema Abdomen-soft, nontender, non distended Extremities-warm, well perfused Neurological-alert and oriented, no focal deficits Assessment & Plan Assessment and plan (1) Screening for colon cancer: Status: Acute Assessment & Plan narrative: The patient requires colorectal screening and colonoscopy is recommended. Technical details were discussed. Risks, benefits, alternatives explained. Risks including but not limited to myocardial in farction, aspiration, bleeding, pain, missed lesion, incomplete examination, need for further radiographic studies, colonic perforation, and need for major abdominal surgery were discussed. All questions were answered to their satisfaction, and they are in agreement with this plan.
[2020-06-15] MEDS: fentaNYL 250 MCG/5 ML INJ IV (14:07)
[2020-06-15] MEDS: MIDAZOLAM 5 MG/5 ML VIAL IV (14:07)
--- NOTE | 2020-06-15 14:23 | PM.OP.ENDO ---
Operative Date/Time/Diagnoses Date of procedure: 06/15/20 Time of procedure: 14:23 Pre-op diagnosis: screening colonoscopy Post-op diagnosis: same Procedure & Clinicians Study performed: aborted colonoscopy Same procedure as scheduled: Yes Indications: screening colonoscopy Surgeon: Sergei Guallpa Procedure Notes SCOAP/Timeout: performed Procedure in detail: Patient placed in left lateral recumbent position. Time out was performed. Procedural sedation was administered with Versed and Fentanyl. Examination began with a thorough inspection of the perianal area there was no evidence of fissures, fistulae, external hemorrhoids or cutaneous malignancy. The colonoscopy scope was then placed into the rectum the the lumen was insufflated with air. The scope was carefully advanced forward. The quality of the prep was quite poor in despite copious irrigation and suction I was unable to adequately visualize the lumen. The procedure was aborted Scope withdrawal time: na Sedation minutes: 7 Specimen(s): none sent Complications: none Impression: Inadequate preparation Post-procedure Recommendations: Other recommendation (Rescheduled colonoscopy) Disposition: same day surgery
== END 2020-06-15 15:02 | disposition home or self-care (01) ==
PROVIDERS: PCP Student in an Organized Health Care Education/Training Program; Referring Provider Student in an Organized Health Care Education/Training Program; Visit Provider Surgery
PROC: 0DJD8ZZ Inspection of Lower Intestinal Tract, Via Natural or Artificial Opening Endoscopic (ICD-10-PCS; CPT 45378; principal; 2020-06-15 13:45)
DX: Z12.11 Encounter for screening for malignant neoplasm of colon (principal); Z53.09 Procedure and treatment not carried out because of other contraindication
CPT/HCPCS: 45378; 99152; J2250; J3010

== ENCOUNTER 2020-07-09 07:45 | Emergency (ER) | payer OTHER, SELFPAY ==
[2020-07-09 07:52] VITALS: BP 135/78; PULSE 90; RESP 18; TEMP 36.7; O2SAT 96
--- NOTE | 2020-07-09 08:05 | ED_ITS ---
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 It started about 2 days ago she overall does not feel well. Requesting test for COVID. She denies any shortness of breath she has thrown up couple of times but has no abdominal pain or diarrhea. She has had fever and rigors. She took Tylenol last evening she is currently afebrile. Related Data Home Medications Medication Instructions Recorded Confirmed albuterol sulfate 2 - 4 puff INHALATION Q4-6H PRN 08/13/18 08/13/18 sertraline 100 mg PO BEDTIME 08/13/18 08/13/18 Previous Rx's Medication Instructions Recorded levofloxacin [Levaquin] 750 mg PO DAILY #5 tab 09/29/19 benzonatate [Tessalon Perles] 100 mg PO TID PRN #20 cap 11/07/19 sodium,potassium,mag sulfates 17.5 177 ml PO DAILY #354 ml 06/21/20 gram-3.13 gram-1.6 gram oral soln Allergies Allergy/AdvReac Type Severity Reaction Status Date / Time ibuprofen Allergy Rash Verified 06/12/20 14:43 Review of Systems Review of Systems ROS Unobtainable: All systems reviewed & are unremarkable except as noted in HPI and below Constitutional Constitutional: Reports as per HPI, Reports body ache(s), Reports chills, Reports fatigue, Reports fever(s) and Denies frequent falls ENT Ears, Nose, Mouth, and Throat: Denies change in voice, Denies dizziness, Denies neck pain and Reports sore throat Cardiovascular Cardiovascular: Denies chest pain, Denies irregular heart rhythm, Denies lightheadedness, Denies palpitations, Denies dyspnea, Denies dyspnea on exertion and Denies orthopnea Respiratory Respiratory: Reports cough, Denies dyspnea and Denies dyspnea on exertion Gastrointestinal Gastrointestinal: Denies abdominal pain, Denies nausea and Reports vomiting Musculoskeletal Musculoskeletal: Denies neck pain and Denies numbness Integumentary/Breasts Skin/Breast: Denies pruritus, Denies erythema, Denies rash and Denies wounds Neurologic Neurologic: Denies behavioral changes, Denies confusion, Denies dizziness, Denies frequent falls and Denies numbness Psychiatric Psychiatric: Denies behavioral changes and Denies confusion Endocrine Endocrine: Reports fatigue and Denies palpitations Patient History Medical History Menopausal syndrome (hot flashes) (Resolved) Surgical History Status post cholecystectomy (Resolved) Status post partial hysterectomy (Resolved) Social History household members: spouse Smoking Status: Never smoker alcohol intake: never Smoking Status: Never smoker alcohol intake frequency: other Substance Use Type: does not use Exam Initial Vital Signs Initial Vital Signs: Vital Signs Temperature 98.1 F 07/09/20 07:52 Pulse Rate 90 07/09/20 07:52 Respiratory Rate 18 07/09/20 07:52 Blood Pressure 135/78 07/09/20 07:52 Pulse Oximetry 96 07/09/20 07:52 GENERAL: Well-appearing, well-nourished and in no acute distress. HEENT: Head atraumatic,EOMI, pupils reactive, face symmetric, moist mucous membranes PHARYNX: Non erythematous no uvula deviation no tonsillar exudate no cervical lymphadenopathy CARDIOVASCULAR: Regular rate and rhythm without murmurs, rubs or gallops. RESPIRATORY: Breath sounds equal bilaterally, no wheezes rales or rhonchi. ABDOMEN: Soft, nontender. Normoactive bowel sounds all 4 quadrants. No guarding or rebound. EXTREMITIES: Normal range of motion, no clubbing or edema. Neurovascularly in tact NEUROLOGICAL: Alert and oriented x4.Normal gait and speech. SKIN: Warm, dry, no laceration, no petechiae, no rashes or lesions. Course Orders Ordered: ED Orders 07/09/20 08:20 COVID19 -ED/INPAT/OR/L&D Stat Vital Signs Vital signs: Vital Signs - 8 hr 07/09/20 07:52 Temperature 98.1 F Pulse Rate 90 Respiratory Rate 18 Blood Pressure 135/78 Pulse Oximetry 96 MDM - Headache Lab Data Labs: Lab Results 07/09/20 Range/Units 08:20 COVID-19 PCR Negative (Negative) MDM Narrative Medical decision making narrative: Patient overall appears well clearly not septic and mild upper respiratory symptoms. Patient's test is negative. However she still is having some symptoms are recommend she stay home until she is symptom-free. And possibly get retested for COVID Discharge Plan Departure Patient Disposition: Home Clinical Impression: Upper respiratory infection Qualifiers: URI type: unspecified viral URI Qualified Code(s): J06.9 - Acute upper respiratory infection, unspecified Instructions: DI for Viral Upper Respiratory Infection -- Adult Activity Restrictions/Additional Instructions: *You have been diagnosed with upper respiratory infection *What to do: COVID-19 test is currently negative however can take up to 5 days for it to become positive. I recommend he stay home at work while you are having symptoms and possibly be retested. Rest hydrate and fever control *Continue to take medications as directed Ibuprofen 600 mg every 6-8 hours if needed for [id number] pain or fever Tylenol 650 mg every 4-6 hours if needed for deth-mr-iqcdioqw pain or fever *Follow up with your primary care provider in 2-3 days *Return to ER if you should have increasing shortness of breath, fever not controlled, not tolerating fluids or any new, worsening or concerning symptoms Prescriptions: No Action sodium,potassium,mag sulfates 17.5-3.13-1.6 gram recon soln 177 ml PO DAILY Qty: 354 RF: 0 albuterol sulfate 90 mcg/actuation HFA aerosol inhaler 2 - 4 puff Inhalation Q4-6H PRN (Reason: wheezing or cough) RF: 0 sertraline 100 mg tablet 100 mg PO BEDTIME RF: 0 levofloxacin [Levaquin] 750 mg tablet 750 mg PO DAILY Qty: 5 RF: 0 benzonatate [Tessalon Perles] 100 mg capsule 100 mg PO TID PRN (Reason: cough) Qty: 20 RF: 0 Referrals: Bryan Seaman DO [Primary Care Provider] - Stand Alone Forms: Work Release Note
[2020-07-09 08:43] LABS: COVID19 -Nasal RAPID Negative (Negative)
== END 2020-07-09 08:57 | disposition home or self-care (01) ==
PROVIDERS: Emergency Provider Emergency Medicine; PCP Student in an Organized Health Care Education/Training Program
DX: Z03.818 Encounter for observation for suspected exposure to other biological agents ruled out (principal); J06.9 Acute upper respiratory infection, unspecified; J02.9 Acute pharyngitis, unspecified; R50.9 Fever, unspecified; R53.83 Other fatigue
CPT/HCPCS: 87635; 99281; 99282

== ENCOUNTER → 2020-07-29 09:59 | Outpatient (CLI) | payer OTHER, SELFPAY ==
[2020-07-29 11:06] LABS: COVID19 -Nasal RAPID Negative (Negative)
== END ==
PROVIDERS: PCP Student in an Organized Health Care Education/Training Program; Visit Provider Physician Assistant
DX: Z11.59 Encounter for screening for other viral diseases (principal)
CPT/HCPCS: 87635

== ENCOUNTER 2020-07-31 08:18 | Day surgery (SDC) | payer OTHER, SELFPAY ==
[2020-07-31 08:48] VITALS: BP 139/85; PULSE 85; RESP 15; TEMP 36.4; O2SAT 98; BMI 28.3
[2020-07-31] MEDS: LACTATED RINGERS 1,000 ML 200 ML IV ×2 (09:01→10:12)
--- NOTE | 2020-07-31 09:12 | PM.HP.1 ---
History of Present Illness History of Present Illness Date Patient Seen: 07/31/20 Time Patient Seen: 09:13 [place] [facility] [place]: The patient presents for colorectal sreening. Had a previous attempt at colonoscopy month and a half ago but this was aborted secondary to inadequate prep. No personal or family history of colon cancer. On further history denies any recent gastrointestinal symptoms. No nausea, vomiting, abdominal pain, loss of appetite, unexplained weight loss, change in bowel habits, diarrhea, constipation, melena, hematochezia, or bright red blood per rectum. Patient History Medical History Menopausal syndrome (hot flashes) Surgical History Status post cholecystectomy Status post partial hysterectomy Family & Social History Social History: household members spouse Tobacco & Substance use: Smoking Status Never smoker alcohol intake never alcohol intake frequency other Substance Use Type does not use Meds Home Medications and Allergies Home Medications Medication Instructions Recorded Confirmed Type albuterol sulfate 2 - 4 puff INHALATION Q4-6H PRN 08/13/18 07/31/20 History sodium,potassium,mag sulfates 17.5 177 ml PO DAILY #354 ml 06/21/20 07/31/20 Rx gram-3.13 gram-1.6 gram oral soln Allergies Allergy/AdvReac Type Severity Reaction Status Date / Time No Known Drug Allergies Allergy Verified 07/31/20 09:00 Review of Systems Review of Systems Narrative: A 10 point review of systems is negative except as noted in the HPI Exam Vital Signs (past 8 hours): - 07/31/20 08:48 Temperature 97.5 F L Pulse Rate 85 Respiratory Rate 15 Blood Pressure 139/85 Pulse Oximetry 98 Oxygen Delivery Method Room Air Narrative Exam Narrative: General-no acute distress, well nourished adult female HEENT-moist mucous membranes, no scleral icterus Neck-supple, no lymphadenopathy Chest- non labored respirations, clear to auscultation bilaterally Cardiac-regular rate no peripheral edema Abdomen-soft, nontender, non distended Extremities-warm, well perfused Neurological-alert and oriented, no focal deficits Assessment & Plan Assessment & Plan narrative: The patient requires colorectal screening and colonoscopy is recommended. Technical details were discussed. Risks, benefits, alternatives explained. Risks including but not limited to myocardial infarction, aspiration, bleeding, pain, missed lesion, incomplete examination, need for further radiographic studies, colonic perforation, and need for major abdominal surgery were discussed. All questions were answered to their satisfaction, and they are in agreement with this plan.
[2020-07-31] MEDS: fentaNYL 250 MCG/5 ML INJ IV (09:33)
[2020-07-31] MEDS: MIDAZOLAM 5 MG/5 ML VIAL IV (09:42)
--- NOTE | 2020-07-31 09:53 | PM.OP.ENDO ---
Operative Date/Time/Diagnoses Date of procedure: 07/31/20 Time of procedure: 09:53 Pre-op diagnosis: screening colonoscopy Post-op diagnosis: same Procedure & Clinicians Study performed: colonoscopy Same procedure as scheduled: Yes Indications: screening Surgeon: Sergei Guallpa Procedure Notes Procedure in detail: Medications: Conscious sedation using *10mg IV midazolam and *250mcg IV of fentanyl The history and physical was performed/updated and the patient is ASA class is 1. The procedure was discussed in detail with the patient. Potential risks complications including infection, bleeding, missed diagnosis, perforation, need for surgery, and were explained. Their questions were answered and informed consent was obtained. Patient was brought to the procedure room and placed standard monitoring equipment. The patient's vital signs were monitored continuously throughout the entire procedure. Prior to starting time-out was performed. The ablation patient was placed in the left lateral recumbent position. Procedural sedation was administered. Examination began with a thorough inspection of the perianal area there was no evidence of fissures, fistulae, external hemorrhoids or cutaneous malignancy. The colonoscopy scope was then placed into the anal canal and was advanced to the cecum, which was identified by the ileocecal valve, the appendiceal orifice and the confluence of the taenia. The scope was then slowly withdrawn examining colon thoroughly in all directions, irrigating it of any residual stool. Extremely redundant and tortuous colon No masses or polyps Sigmoid diverticulosis The patient tolerated the procedure well. They will be discharged once criteria are met. The prep was of good/excellent quality. The withdrawl time was 7 minutes. The sedation time was 36 minutes. Specimen(s): none sent Complications: none Impression: Normal colonoscopy Post-procedure Recommendations: Colonscopy in 10 years Disposition: same day surgery
[2020-07-31 09:55] VITALS: BP 160/92; PULSE 97; RESP 14; TEMP 36.3; O2SAT 100
[2020-07-31 10:01] VITALS: BP 120/99; PULSE 95; RESP 14; O2SAT 100
[2020-07-31 10:07] VITALS: BP 129/96; PULSE 97; RESP 18; O2SAT 100
[2020-07-31 10:19] VITALS: BP 123/84; PULSE 97; TEMP 36.9; O2SAT 98
== END 2020-07-31 10:35 | disposition home or self-care (01) ==
PROVIDERS: PCP Student in an Organized Health Care Education/Training Program; Referring Provider Student in an Organized Health Care Education/Training Program; Visit Provider Surgery
PROC: 0DJD8ZZ Inspection of Lower Intestinal Tract, Via Natural or Artificial Opening Endoscopic (ICD-10-PCS; CPT 45378; principal; 2020-07-31 09:15)
DX: Z12.11 Encounter for screening for malignant neoplasm of colon (principal); K57.30 Diverticulosis of large intestine without perforation or abscess without bleeding
CPT/HCPCS: 45378; 99152; 99153; J2250; J3010